=== PATIENT | male | born 1985 ===

== ENCOUNTER 2022-03-23 15:37 | Emergency (ER) | payer BC ==
[~2022-03-23] VITALS: Ht 180.3 cm; Wt 71.7 kg
[2022-03-23 15:50] VITALS: BP 123/75
--- NOTE | 2022-03-23 15:55 | NUR ---
PT AMBULTED TO BED 10.
--- NOTE | 2022-03-23 16:19 | NUR ---
36/M C/O NUMBNESS IN PELVIC AND RECTAL AREA. STATES 01/11/22 HE RECEIVED A NERVE BLOCK IN HIS RECTAL AREA BEFORE HAVING A RECTAL EXAM. STATING SINCE HE HAS EXPERIENCED NUMBNESS AND INTERMTTENT EPISODES OF PAIN. PTS PAIN CAN BE 6/10 BUT NO COMPLAINT OF PAIN AT THE MOMENT. PT UNABLE TO SIT IN CERTAIN POSITIONS. HE IS WALKING AROUND THE RROM BECAUSE HE IS TOO UNCOMFORTABLE TO SIT DOWN. NO COMPLAINTS OF PAIN ANYWHERE ELSE. NO URINARY OR BOWEL PROBLEMS AT THE MOMENT. PMH: CROHNS DISEASE NKA
[2022-03-23 18:55] LABS: BASOPHILS % (AUTO) 0.4 % (0.0-2.0); EOSINOPHILS # (AUTO) 0.1 K/uL (0-0.4); EOSINOPHILS % (AUTO) 1.9 % (0.0-4.0); HEMATOCRIT 43.6 % (36-52); HEMOGLOBIN 14.6 g/dL (12.0-18.0); LYMPHOCYTES # (AUTO) 1.2 K/uL (2.0-11.5); LYMPHOCYTES % (AUTO) 20.4 % (20.5-51.1); MEAN CORPUSCULAR HEMOGLOBIN 29 pg (27-31); MEAN CORPUSCULAR HGB CONC 34 g/dL (33-37); MEAN CORPUSCULAR VOLUME 86.3 fL (80-94); MONOCYTES # (AUTO) 0.5 K/uL (0.8-1.0); MONOCYTES % (AUTO) 8.6 % (1.7-9.3); NEUTROPHILS # (AUTO) 4.1 K/uL (1.8-7.7); NEUTROPHILS % (AUTO) 68.7 % (42.2-75.2); PLATELET COUNT (AUTO) 288 K/uL (140-450); RED BLOOD CELL COUNT(AUTO) 5.05 MIL/uL (4.20-6.10); RED CELL DISTRIBUTION WIDTH 13.5 % (11.6-13.7)
[2022-03-23 18:56] VITALS: BP 115/70
--- NOTE | 2022-03-23 19:23 | NUR ---
GAVE REPORT TO VIKASH
[2022-03-23 19:25] LABS: ANION GAP 10.3 (8-16); CARBON DIOXIDE 28.7 mmol/L (21-32); CREATININE 1.2 mg/dL (0.6-1.3)
--- NOTE | 2022-03-23 19:38 | NUR ---
PT EXPLAINED TRANSFER PROCESS, PT AWAITING CT AND TRANSFER. DENIES DISCOMFORT AND PAIN AT THE MOMENT
--- NOTE | 2022-03-23 20:08 | NUR ---
PT AMBULATED TO THE BATHROOM WITH URINE CUP.
--- NOTE | 2022-03-23 20:48 | NUR ---
Patient does not wish to proceed with medical care recommended by DR. MOREIRA. Patient given information related to possible complications, up to and including , which could occur as a result of leaving hospital at this time. Patient verbalizes understanding of risks involved leaving against medical advice. Patient has signed AMA form.
== END 2022-03-23 20:48 | disposition left against medical advice (07) ==
LOC: MED 15:37
DX: M54.50 Low back pain, unspecified (principal); Z20.822 Contact with and (suspected) exposure to COVID-19; M53.3 Sacrococcygeal disorders, not elsewhere classified; R20.0 Anesthesia of skin; Z98.890 Other specified postprocedural states
CPT/HCPCS: 36415; 80048; 85025; 85651; 86140; 99283